=== PATIENT | female | born 1985 | race Caucasian/White ===

== ENCOUNTER 2019-12-16 18:28 | Emergency (ER) | payer OTHER ==
--- NOTE | 2019-12-16 19:17 | EDM.PDOC ---
ED HPI GENERAL MEDICAL PROBLEM - General Chief Complaint: Lower Extremity Injury/Pain Stated Complaint: ANKLE INJURY Time Seen by Provider: 12/16/19 18:58 Source of Information: Reports: Patient, RN Notes Reviewed History Limitations: Reports: No Limitations - History of Present Illness INITIAL COMMENTS - FREE TEXT/NARRATIVE: Patient is a 33-year-old female who presents to the ED for evaluation of a right ankle injury. [place] her right ankle. Patient states that she took 400 mg ibuprofen right at the time of the injury, which she noted to be at around 1 PM. The patient states that she elevated her ankle for a small amount of time, but finish the hike, and states that she hiked another 3 miles after this. Patient she states that they had an hour drive home after this, she took her boots off, and elevated her leg as well during the drive home. After this they took a nap at home, and she was awakened to note quite a bit more swelling, and her ankle is very painful. She did take another 2 tablets of ibuprofen shortly before presenting to the ER. Patient denies any chance of , states she is sexually active but uses protection. She denies any fever/chills, cough/shortness of breath, or any other sick-like symptoms. Right Ankle Pain Score (Numeric/FACES): 3 - Related Data Allergies Allergy/AdvReac Type Severity Reaction Status Date / Time No Known Allergies Allergy Verified 12/16/19 18:53 Past Medical History - Past Surgical History HEENT Surgical History: Reports: Oral Surgery, Tonsillectomy Social & Family History - Family History Family Medical History: Noncontributory - Tobacco Use Smoking Status *Q: Never Smoker Second Hand Smoke Exposure: No Review of Systems - Review of Systems Review Of Systems: Comprehensive ROS is negative, except as noted in HPI. ED EXAM, GENERAL - Physical Exam Exam: See Below Exam Limited By: No Limitations General Appearance: Alert, WD/WN, No Apparent Distress Respiratory/Chest: No Respiratory Distress, Lungs Clear, Normal Breath Sounds, No Accessory Muscle Use, Chest Non-Tender Cardiovascular: Normal Peripheral Pulses, Regular Rate, Rhythm, No Murmur Peripheral Pulses: 2+: Dorsalis Pedis (L), Dorsalis Pedis (R) Extremities: Normal Range of Motion, Normal Capillary Refill, Joint Swelling (right moderate lateral ankle swelling) Neurological: Alert, Oriented, Normal Cognition, No Motor/Sensory Deficits Psychiatric: Normal Affect, Normal Mood Skin Exam: Warm, Dry, Intact, Normal Color, No Rash Course - Vital Signs Last Recorded V/S: Last Vital Signs Temp 98.1 F 12/16/19 18:53 Pulse 77 12/16/19 18:53 Resp 16 12/16/19 18:53 BP 124/83 12/16/19 18:53 Pulse Ox 98 12/16/19 18:53 - Orders/Labs/Meds Orders: Active Orders 24 hr Category Date Time Status DME for Discharge [COMM] Routine Oth 12/16/19 20:05 Ordered - Re-Assessments/Exams Free Text/Narrative Re-Assessment/Exam: 12/16/19 19:16 The patient presents to the ED for evaluation of her right ankle injury. Unlikely that the patient broke anything, but she would like x-rays done at this time. Have ordered ankle x-rays for evaluation. Patient denies any sort of chance of at this time. 12/16/19 20:05 Patient's x-rays demonstrate a minimal cortical avulsion fracture off the tip of the fibula. This is very minimal. There is overlying soft tissue swelling as well. Patient will be fitted with a walking boot, and given crutches as she states is very painful to walk. I did go over the general recommendations with her, and she did verbalize understanding at this time. Departure - Departure Time of Disposition: 20:06 Disposition: Home, Self-Care 01 Condition: Good Clinical Impression: Avulsion fracture of distal fibula - Discharge Information *PRESCRIPTION DRUG MONITORING PROGRAM REVIEWED*: No *COPY OF PRESCRIPTION DRUG MONITORING REPORT IN PATIENT BARRY: No Instructions: Crutch Use, Adult, [id number], Nondisplaced Fibular Ankle Fracture Treated With Immobilization, Adult Referrals: PCP,Not In Area [Primary Care Provider] - Forms: ED Department Discharge Additional Instructions: You have been evaluated in the ED for your right ankle injury. Your x-ray demonstrated a minimal avulsion fracture off of your fibula on your right leg. You have been fitted with a walking boot, and crutches, you may weight-bear as tolerated, and use the crutches for walking, until it begins to be less painful to do so without them. Please use ice as tolerated to the affected area. Please elevate the area to allow further swelling relief. You may take Tylenol 500 mg or ibuprofen 600mg q6 hrs for pain relief. Please do so until you have a tolerable level of pain with activity. Do not exceed 4000mg Tylenol, Do not exceed 3200mg ibuprofen in a 24 hour time period. Please call Ortho for follow-up and further evaluation Dr. Bowman is our o rthopedic surgeon, his office number is [phone]. Please call and set up an appointment as soon as possible for further management. Please return to ED if your symptoms should change or worsen. Sepsis Event Note (ED) - Evaluation Sepsis Screening Result: No Definite Risk - Focused Exam Vital Signs: Vital Signs Temp Pulse Resp BP Pulse Ox 12/16/19 18:53 98.1 F 77 16 124/83 98 - My Orders Last 24 Hours: My Active Orders 12/16/19 20:05 DME for Discharge [COMM] Routine - Assessment/Plan Last 24 Hours: My Active Orders 12/16/19 20:05 DME for Discharge [COMM] Routine
--- NOTE | 2019-12-16 19:51 | CR ---
Right ankle: 3 views of the right ankle were obtained. Comparison: No previous ankle study. Soft tissue swelling is identified. Minimal jessica of bone is seen off the inferior fibula compatible with minimal cortical avulsion fracture. No additional fracture or other bony abnormality is appreciated. Impression: 1. Minimal cortical avulsion fracture off the tip of the fibula. 2. Soft tissue swelling. Diagnostic code #3 Study was dictated in MDT
== END 2019-12-16 21:10 | disposition home or self-care (01) ==
LOC: JD.ED 18:28
DX: S82.831A Other fracture of upper and lower end of right fibula, initial encounter for closed fracture (principal); X50.9XXA Other and unspecified overexertion or strenuous movements or postures, initial encounter
CPT/HCPCS: 73610-26-RT; 73610-RT; 99282; 99283